=== PATIENT | female | born 1960 | race Caucasian/White ===

== ENCOUNTER 2018-01-10 15:33 | Emergency (ER) | payer MEDICARE, MEDICAID ==
[~2018-01-10] VITALS: Ht 167.6 cm; Wt 81.6 kg
[~2018-01-10 15:33] MED LIST: HYDR-3720 PO; HYDR1TAB PO; [UNRECOGNIZED DRUG - OTHER]
--- OUTSIDE RECORDS SUMMARY | 2018-01-10 15:39 | XMS REPORT ---
Author Author Rickie Arizmendi [facility] Address [address] [facility] [address] [place], [place] [id number] Care Team Providers Care Textile Coating Machine Operator Name Role Phone Rickie Arizmendi PCP Unavailable Allergies and Adverse Reactions Name Reaction Notes Methotrexate Toradol meloxicam nausea and vomiting amitriptyline muscle spasms PENICILLINS breast abcess Aspirin hives, throat swells Plan of Treatment Planned Activity Comments Planned Date Planned Time Plan/Goal ANTINUCLEAR ANTIBODIES (MICKEY) 10/28/2011 12:00 AM RHEUMATOID FACTOR QUANT 10/28/2011 12:00 AM RBC SED RATE AUTOMATED 10/28/2011 12:00 AM C-REACTIVE PROTEIN 10/28/2011 12:00 AM ANTINUCLEAR ANTIBODIES (MICKEY) 07/10/2012 12:00 AM ANTINUCLEAR ANTIBODIES 07/10/2012 12:00 AM RHEUMATOID FACTOR TEST QUAL 07/10/2012 12:00 AM CCP ANTIBODY 07/10/2012 12:00 AM C-REACTIVE PROTEIN 07/10/2012 12:00 AM RBC SED RATE AUTOMATED 07/10/2012 12:00 AM COMPUTER DX MAMMOGRAM ADD-ON 02/06/2013 12:00 AM Breast Ultrasound 02/06/2013 12:00 AM Ultrasound examination of the breast(s) 02/14/2014 12:00 AM Medications Active Name Start Date Estimated Completion Date SIG Comments Depo-Estradiol Intramuscular Oil 5 mg/mL 05/31/2013 inject 1 milliliter by intramuscular route every 3 weeks Depo-Estradiol intramuscular oil 5 mg/mL 12/27/2012 inject 1 milliliter by intramuscular route every 2 weeks Ventolin HFA inhalation HFA aerosol inhaler 90 mcg/actuation 02/14/2014 inhale 2 puffs by inhalation route every 6 hours as needed Nicotrol inhalation cartridge 10 mg 02/14/2014 inhale 1 unit by inhalation route as needed up to 16 times per day fluticasone nasal spray,suspension 50 mcg/actuation 03/15/2014 spray 2 sprays (100 mcg) in each nostril by intranasal route once daily as needed fluticasone nasal spray,suspension 50 mcg/actuation 10/16/2014 USE 1 SPRAY IN EACH NOSTRIL TWICE DAILY Depo-Estradiol intramuscular oil 5 mg/mL 11/21/2014 INJECT 1ML BY INTRAMUSCULAR ROUTE EVERY 3 WEEKS Name Start Date Expiration Date SIG Comments Zithromax Z-Yoandy Oral Tablet 250 mg 05/01/2010 05/06/2010 take 2 tablets (500 mg) by oral route once daily for 1 day then 1 tablet (250 mg) by oral route once daily for 4 days Zithromax Z-Yoandy Oral Tablet 250 mg 10/27/2010 11/01/2010 take 2 tablets (500 mg) by oral route once daily for 1 day then 1 tablet (250 mg) by oral route once daily for 4 days Fexofenadine Oral Tablet 180 mg 04/02/2011 04/02/2011 take 1 tablet (180 mg) by oral route once daily Medrol (Yoandy) Oral Tablets, Dose Pack 4 mg 04/15/2011 04/15/2011 take as labeled magnesium citrate Oral Solution 08/18/2011 08/20/2011 Drink 0.5 bottle daily for 2 days Lidoderm Topical Adhesive Patch, Medicated 5 %(700 mg/patch) 07/10/201208/09 apply 2 patches by transdermal route once daily (May wear up to 12hours. ) for 30 days Nicotrol Inhalation Cartridge 10 mg 07/10/2012 10/02/2012 inhale 1 unit by inhalation route as needed for 12 weeks up to 16 times per day ofloxacin Otic Drops 0.3 % 12/21/2012 12/21/2012 instill 10 drops (1.5 mg) into affected ear(s) by otic route 2 times per day clindamycin HCl Oral capsule 150 mg 12/29/2012 01/08/2013 take 1 capsule (150 mg) by oral route 2 times per day for 10 days temazepam Oral capsule 30 mg 10/19/2012 11/18/2012 take 1 capsule (30 mg) by oral route once daily at bedtime as needed for 30 days estropipate oral tablet 1.5 mg 05/30/2014 06/29/2014 take 1 tablet (1.5 mg) by oral route once daily for 30 days Discontinued Name Start Date Discontinued Date SIG Comments Loratadine Oral Tablet 10 mg 05/01/2010 01/20/2011 take 1 tablet (10 mg) by oral route once daily Miladys-D 12 Hour Oral Tablet Sustained Release hr 60-120 mg 09/24/20102010 take 1 tablet by oral route 2 times per day Hydrocodone-Acetaminophen Oral Tablet 10-325 mg 01/07/2011 01/20/2011 TAKE ONE OR TWO TABLETS BY MOUTH EVERY SIX HOURS NEEDED FOR PAIN Percocet Oral Tablet 10-325 mg 01/20/2011 02/02/2011 take 1 tablet by oral route every 6 hours as needed ofloxacin Otic Drops 0.3 % 06/15/2011 08/18/2011 instill 10 drops (1.5 mg) into affected ear(s) by otic route 2 times per day Depo-Estradiol Intramuscular Oil 5 mg/mL 08/10/2011 11/17/2012 inject 1 milliliter (5 mg) by intramuscular route every 2 weeks meloxicam Oral Tablet 7.5 mg 10/01/2011 10/01/2011 take 1 tablet (7.5 mg) by oral route once daily for 30 days Nausea meloxicam Oral Tablet 7.5 mg 10/25/2011 10/28/2011 take 1 tablet (7.5 mg) by oral route once daily for 30 days diclofenac potassium Oral Tablet 50 mg 10/28/2011 02/06/2013 take 1 tablet ( 50 mg) by oral route 2 times per day with food Xanax Oral Tablet 1 mg 12/28/2011 02/06/2013 TAKE ONE TABLET BY MOUTH THREE TIMES DAILY NEEDED alprazolam on list Soma Oral Tablet 350 mg 02/28/2012 01/19/2013 TAKE ONE TABLET BY MOUTH THREE TIMES DAILY NEEDED Duplicate medication on list [place]stock Oral Tablet 10-325 mg 06/01/2012 12/28/2012 TAKE ONE OR TWO TABLETS BY MOUTH EVERY SIX HOURS NEEDED FOR PAIN Duplicate medication on the list temazepam Oral capsule 30 mg 06/28/2012 07/10/2012 Take 1 capsule (30 mg) by oral route at bedtime as needed trazodone Oral tablet 100 mg 07/10/2012 01/06/2013 take 1 tablet (100 mg) by oral route once daily at bedtime for 30 days Adverse reaction--Headache dicyclomine Oral capsule 10 mg 10/05/2012 02/06/2013 take 1 capsule (10 mg) by oral route 3 times per day as needed estropipate Oral tablet 1.5 mg 11/17/2012 12/27/2012 take 1 tablet (1.5 mg) by oral route once daily for 30 days Changing back to DepoEstradiol Diflucan Oral tablet 100 mg 12/29/2012 02/06/2013 take 1 tablet by oral route every other day pseudoephedrine HCl Oral tablet extended release 120 mg 01/22/2013 02/20/2013 take 1 tablet (120 mg) by oral route every 12 hours as needed for 30 days Taking [facility] clindamycin HCl Oral capsule 150 mg 02/06/2013 05/01/2013 take 1 capsule (150 mg) by oral route 2 times per day [facility] 12 hour Oral tablet extended release 120 mg 04/21/2013 05/01/2013 take 1 tablet (120 mg) by oral route every 12 hours as needed for 30 days Advised to get all allergy medications from Dr Morales estropipate Oral tablet 3 mg 05/01/2013 05/31/2013 take 1 tablet (3 mg) by oral route once daily for 30 days fentanyl Transdermal Patch 72 hr 50 mcg/hr 05/31/2013 06/28/2013 apply 1 patch (50 mcg/hour) by transdermal route every 72 hours for 30 days Different effect with different healthcare manager Butrans Transdermal Patch Weekly 20 mcg/hour 06/28/2013 07/27/2013 apply 1 patch (20 mcg/hour) by transdermal route every 7 days prednisone oral tablet 20 mg 07/27/2013 08/23/2013 take 1 tablet (20 mg) by oral route once daily for 10 days then 0.5 tablet (10 mg) for 5 days MS Contin oral tablet extended release 30 mg 10/19/2013 11/19/2013 take 1 tablet (30 mg) by oral route every 12 hours for 30 days Continues to have " bone pain" but has not seen Distribution System Operator yet. Wants to try Oxycontin Levaquin oral tablet 500 mg 02/14/2014 05/16/2014 take 1 tablet (500 mg) by oral route once daily OxyContin oral tablet extended release 12 hr 30 mg 09/06/2014 10/09/2014 take 1 tablet by oral route every 12 hours for 30 days MS Contin oral tablet extended release 30 mg 10/09/2014 11/07/2014 take 1 tablet by oral route every 12 hours for 30 days [facility] 12 hour oral tablet extended release 120 mg 10/16/2014 01/03/2015 take 1 tablet (120 mg) by oral route every 12 hours as needed for 30 days alprazolam oral tablet 1 mg 11/07/2014 01/03/2015 take 1 tablet by oral route 3 times a day as needed for 30 days carisoprodol oral tablet 350 mg 11/07/2014 01/03/2015 TAKE ONE TABLET BY MOUTH THREE TIMES DAILY NEEDED hydrocodone-acetaminophen oral tablet 10-325 mg 11/07/2014 01/03/2015 TAKE 1 TABLET BY MOUTH EVERY 8 HOURS NEEDED MS Contin oral tablet extended release 15 mg 11/07/2014 01/03/2015 take 1 tablet (15 mg) by oral route every 12 hours for 5 days then 1 tablet daily for 5 days Problem List Description Status Onset Arthritis unspecified Active Chronic Back Pain Active compression fractures of back Active Seasonal Allergies Active Rheumatoid arthritis Active 07/01/2013 Vital Signs Date Time BP-Sys(mm[Hg] BP-Alison(mm[Hg]) HR(bpm) RR(rpm) Temp WT HT HC BMI BSA BMI Percentile O2 Sat(%) 11/07/2014 2:09:00 PM 130 mmHg 90 mmHg 81 bpm 16 rpm 96.4 F 182.8 lbs 66 in 29.50 kg/m2 1.96 m2 98 % 10/09/2014 10:07:00 AM 128 mmHg 62 mmHg 69 bpm 18 rpm 98.3 F 185 lbs 66 in 29.8595 kg/m 1.9768 m 99 % 07/09/2014 9:24:00 AM 128 mmHg 70 mmHg 84 bpm 16 rpm 97.2 F 187 lbs 66 in 30.18 kg/m2 1.99 m2 98 % 05/16/2014 9:17:00 AM 132 mmHg 80 mmHg 72 bpm 20 rpm 98.3 F 187 lbs 66 in 30.1823 kg/m 1.9874 m 97 % 03/15/2014 9:07:00 AM 130 mmHg 70 mmHg 89 bpm 20 rpm 98.6 F 185 lbs 66 in 29.86 kg/m2 1.98 m2 100 % 02/14/2014 9:18:00 AM 138 mmHg 88 mmHg 84 bpm 20 rpm 98.1 F 184 lbs 66 in 29.6981 kg/m 1.9714 m 98 % 01/18/2014 8:56:00 AM 136 mmHg 78 mmHg 80 bpm 16 rpm 98 F 178 lbs 66 in 28.73 kg/m2 1.94 m2 100 % 12/11/2013 9:08:00 AM 136 mmHg 80 mmHg 91 bpm 20 rpm 98 F 182 lbs 66 in 29.3753 kg/m 1.9607 m 99 % 11/19/2013 10:23:00 AM 132 mmHg 88 mmHg 89 bpm 20 rpm 98.1 F 182 lbs 66 in 29.38 kg/m2 1.96 m2 100 % 10/19/2013 10:13:00 AM 128 mmHg 78 mmHg 80 bpm 20 rpm 98.1 F 183 lbs 64 in 31.4116 kg/m 1.936 m 98 % 09/21/2013 10:05:00 AM 132 mmHg 78 mmHg 80 bpm 16 rpm 98.1 F 183 lbs 66 in 29.54 kg/m2 1.97 m2 100 % 08/23/2013 2:05:00 PM 130 mmHg 72 mmHg 73 bpm 20 rpm 97.8 F 183 lbs 66 in 29.5367 kg/m 1.9661 m 99 % 07/27/2013 9:23:00 AM 140 mmHg 80 mmHg 81 bpm 22 rpm 98 F 188 lbs 66 in 30.34 kg/m2 1.99 m2 100 % 06/28/2013 10:12:00 AM 132 mmHg 70 mmHg 76 bpm 18 rpm 97.8 F 187 lbs 66 in 30.1823 kg/m 1.9874 m 95 % 05/31/2013 9:54:00 AM 130 mmHg 78 mmHg 84 bpm 18 rpm 97.8 F 187 lbs 66 in 30.18 kg/m2 1.99 m2 98 % 05/01/2013 10:38:00 AM 142 mmHg 78 mmHg 82 bpm 20 rpm 98.4 F 187 lbs 66 in 30.1823 kg/m 1.9874 m 02/06/2013 4:15:00 PM 132 mmHg 78 mmHg 70 bpm 18 rpm 97.8 F 177 lbs 66 in 28.57 kg/m2 1.93 m2 11/17/2012 10:09:00 AM 134 mmHg 78 mmHg 72 bpm 16 rpm 98 F 177 lbs 66 in 28.5683 kg/m 1.9336 m 07/10/2012 10:17:00 AM 130 mmHg 76 mmHg 70 bpm 18 rpm 98 F 185 lbs 66 in 29.86 kg/m2 1.98 m2 10/28/2011 10:38:00 AM 128 mmHg 70 mmHg 78 bpm 22 rpm 98.2 F 10/01/2011 9:31:00 AM 132 mmHg 68 mmHg 72 bpm 18 rpm 97.7 F 181.375 lbs 66 in 29.27 kg/m2 1.96 m2 09/07/2011 10:33:00 AM 134 mmHg 76 mmHg 70 bpm 18 rpm 98 F 181 lbs 66 in 29.2139 kg/m 1.9553 m 08/18/2011 9:18:00 AM 126 mmHg 70 mmHg 74 bpm 16 rpm 97.8 F 175 lbs 66 in 28.25 kg/m2 1.92 m2 06/15/2011 9:38:00 AM 134 mmHg 72 mmHg 76 bpm 18 rpm 98.2 F 175 lbs 66 in 28.2454 kg/m 1.9226 m 04/23/2011 10:20:00 AM 136 mmHg 78 mmHg 72 bpm 18 rpm 98.2 F 170 lbs 66 in 27.44 kg/m2 1.89 m2 02/22/2011 8:45:00 AM 130 mmHg 72 mmHg 70 bpm 18 rpm 98.3 F 166 lbs 01/20/2011 10:57:00 AM 130 mmHg 72 mmHg 76 bpm 18 rpm 98.2 F 172 lbs 05/13/2010 9:24:00 AM 134 mmHg 78 mmHg 74 bpm 18 rpm 97.2 F 169 lbs 05/01/2010 9:26:00 AM 128 mmHg 70 mmHg 70 bpm 18 rpm 98.3 F 159 lbs Social History Name Description Comments Tobacco Current every day smoker No Alcohol Use History of Procedures Date Ordered Description Order Status 04/23/2011 12:00 AM DRAIN/INJ JOINT/BURSA W/O US Reviewed 04/23/2011 12:00 AM HEPATIC FUNCTION PANEL Reviewed 10/01/2011 12:00 AM THER/PROPH/DIAG INJ SC/IM Reviewed 10/28/2011 12:00 AM X-RAY EXAM OF HIPS Reviewed 09/25/2012 12:00 AM THER/PROPH/DIAG INJ SC/IM Reviewed 11/17/2012 12:00 AM X-RAY EXAM OF FOOT Reviewed 06/28/2013 12:00 AM X-RAY EXAM L-S SPINE 2/3 VWS Reviewed 11/19/2013 12:00 AM X-RAY EXAM OF HIP Reviewed 05/13/2010 12:00 AM DRAIN/INJ JOINT/BURSA W/O US Reviewed 10/09/2014 12:00 AM DRUG SCREEN CLASS LIST A Reviewed 01/24/2011 12:00 AM DRAIN/INJ JOINT/BURSA W/O US Reviewed Results Summary Data and Description Results 04/23/2011 12:20 PM SGOT/AST 25.0 IU/LSGPT/ALT 26.0 IU/LALK PHOS 84.0 IU/LTOTAL PROTEIN 7.70 g/dLALBUMIN 4.20 g/dLTOTAL BILI 0.20 mg/dLDIRECT BILI 0.10 mg/ dLINDIRECT BILI 0.10 mg/dL History Of Immunizations Not available. History of Past Illness Name Date of Onset Comments Arthritis unspecified compression fractures of back Chronic Back Pain Seasonal Allergies Rheumatoid arthritis 07/01/2013 Chronic Low Back Pain May 01 2010 9:28AM Menopause May 01 2010 9:28AM Left Otitis Media, Acute May 01 2010 9:28AM Eustachian Tube Dysfunction, Left May 01 2010 9:28AM Eustachian Tube Dysfunction, Left May 13 2010 9:26AM Osteoarthritis, Knee May 13 2010 9:31AM Chronic Low Back Pain Jan 20 2011 10:56AM Insomnia Jan 20 2011 10:56AM Osteoarthritis, Knee Jan 24 2011 2:24PM Insomnia Feb 22 2011 8:44AM Osteoarthritis, Knee Apr 28 2011 5:22PM intermodal dispatcher medication use - Tylenol Apr 28 2011 5:22PM Right Acute Otitis Externa Jun 15 2011 9:35AM Upper Respiratory Infection Aug 18 2011 9:20AM Contact Dermatitis Aug 18 2011 9:20AM Upper Respiratory Infection Sep 07 2011 10:35AM Bronchitis, Allergic Sep 07 2011 10:35AM Menopause Sep 07 2011 10:35AM Right Osteoarthritis Oct 01 2011 9:33AM Hip Osteoarthritis Oct 28 2011 10:40AM Polyarthralgia Jul 10 2012 10:20AM Myalgia Jul 10 2012 10:20AM Insomnia Jul 10 2012 10:20AM Tobacco use disorder Jul 10 2012 10:20AM Allergic rhinitis; due to pollen Sep 25 2012 10:18AM Allergic rhinitis; due to other allergen Sep 25 2012 10:18AM Pain in right foot Nov 17 2012 9:48AM Rhinitis, Chronic Nov 17 2012 9:48AM Menopause Nov 17 2012 9:48AM Mastitis Feb 06 2013 4:17PM Polyarthralgia May 01 2013 10:40AM Myalgia May 01 2013 10:40AM Insomnia May 01 2013 10:40AM Chronic Low Back Pain May 31 2013 9:56AM Menopause May 31 2013 9:56AM Chronic Low Back Pain Jun 28 2013 10:15AM Menopause Jun 28 2013 10:15AM Rheumatoid Arthritis Jun 28 2013 10:15AM Chronic Low Back Pain Jul 27 2013 9:25AM Menopause Jul 27 2013 9:25AM Rheumatoid Arthritis Jul 27 2013 9:25AM Chronic Low Back Pain Aug 23 2013 2:07PM Menopause Aug 23 2013 2:07PM Rheumatoid Arthritis Aug 23 2013 2:07PM Chronic Low Back Pain Sep 21 2013 10:08AM Menopause Sep 21 2013 10:08AM Rheumatoid Arthritis Sep 21 2013 10:08AM Chronic Low Back Pain Oct 19 2013 10:16AM Menopause Oct 19 2013 10:16AM Rheumatoid Arthritis Oct 19 2013 10:16AM Hip pain-right Nov 19 2013 10:26AM Rheumatoid Arthritis Nov 19 2013 10:26AM Rheumatoid Arthritis Dec 11 2013 9:10AM Rheumatoid Arthritis Jan 18 2014 8:58AM Chronic pain syndrome Jan 18 2014 8:58AM Rheumatoid Arthritis Feb 14 2014 9:21AM Chronic Back Pain Feb 14 2014 9:21AM Fibromyalgia Feb 14 2014 9:21AM Mastitis chronic, right Feb 14 2014 9:21AM Bilateral Breast mass Feb 14 2014 9:21AM Nicotine addiction Feb 14 2014 9:21AM Rheumatoid Arthritis Mar 15 2014 9:09AM Chronic Back Pain Mar 15 2014 9:09AM Fibromyalgia Mar 15 2014 9:09AM Mastitis chronic, right Mar 15 2014 9:09AM Bilateral Breast mass Mar 15 2014 9:09AM Nicotine addiction Mar 15 2014 9:09AM Chronic mastitis Mar 15 2014 9:09AM Rheumatoid Arthritis May 16 2014 9:19AM Chronic Back Pain May 16 2014 9:19AM Fibromyalgia May 16 2014 9:19AM Mastitis chronic, right May 16 2014 9:19AM Breast mass May 16 2014 9:19AM Chronic mastitis May 16 2014 9:19AM Fibromyalgia Jul 09 2014 9:26AM Anxiety Disorder Jul 09 2014 9:26AM Rheumatoid Arthritis Jul 09 2014 9:26AM Chronic Back Pain Jul 09 2014 9:26AM Fibromyalgia Oct 09 2014 10:09AM Anxiety Disorder Oct 09 2014 10:09AM Rheumatoid Arthritis Oct 09 2014 10:09AM Chronic Back Pain Oct 09 2014 10:09AM Encounter for long-term (current) drug use Oct 09 2014 10:09AM Chronic Back Pain Nov 07 2014 2:12PM Vaginal discharge Nov 07 2014 2:12PM Chronic pain syndrome Jan 03 2015 10:59AM Payers Insurance Name Company Name Plan Name Plan Number Policy Number Policy Group Number Start Date Medicare Part A Medicare Part A [id number] N/A [employer] [place] [employer] [place] [id number] N/A [employer] [place] [employer] [place] [id number] N/A [place] [employer] - [place] [employer] - RHC [id number] N/A [facility] - RHC - Community Plan of [facility] RHC Comm [id number] Wednesday, 2012 Medicare Part B Medicare Of [place] [id number] Thursday, 1995 [place] [id number] Saturday, 2010 History of Encounters Visit Date Visit Type Provider 01/03/2015 Office visit Rickie Arizmendi DO 11/07/2014 Office visit Rickie Arizmendi DO 10/09/2014 Office visit Rickie Arizmendi DO 07/09/2014 Office visit Rickie Arizmendi DO 05/16/2014 Office visit Rickie Arizmendi DO 03/15/2014 Office visit Rickie Arizmendi DO 02/14/2014 Office visit Rickie Arizmendi DO 01/18/2014 Office visit Rickie Arizmendi DO 12/11/2013 Office visit Rickie Arizmendi DO 11/19/2013 Office visit Rickie Arizmendi DO 10/19/2013 Office visit Rickie Arizmendi DO 09/21/2013 Office visit Rickie Arizmendi DO 08/23/2013 Office visit Rickie Arizmendi DO 07/27/2013 Office visit Rickie Arizmendi DO 06/28/2013 Office visit Rickie Arizmendi DO 05/31/2013 Office visit Rickie Arizmendi DO 05/01/2013 Office visit Rickie Arizmendi DO 02/06/2013 Office visit Rickie Arizmendi DO 11/17/2012 Office visit Rickie Arizmendi DO 09/25/2012 Nurse visit Rickie Arizmendi DO 07/10/2012 Office visit Rickie Arizmendi DO 10/28/2011 Office visit Rickie Arizmendi DO 10/01/2011 Office visit Kenya Clarke APRN 09/07/2011 Office visit Rickie Arizmendi DO 08/18/2011 Office visit Rickie Arizmendi DO 06/15/2011 Office visit Rickie Arizmendi DO 04/23/2011 Office visit Rickie Arizmendi DO 02/22/2011 Office visit Rickie Arizmendi DO 01/20/2011 Office visit Rickie Arizmendi DO 05/13/2010 Office visit Rickie Arizmendi DO 05/01/2010 Office visit Rickie Arizmendi DO
--- OUTSIDE RECORDS SUMMARY | 2018-01-10 15:40 | XMS REPORT ---
Author Author Rickie Arizmendi [facility] Address [address] [facility] [address] [place], [place] [id number] Care Team Providers Care Supplemental Manager Name Role Phone Rickie Arizmendi PCP Unavailable [...] TIMES DAILY NEEDED Duplicate medication on list Sharon Oral Tablet 10-325 mg 06/01/2012 12/28/2012 TAKE [...] for 30 days Different effect with different ux lead Butrans Transdermal Patch Weekly 20 mcg/hour 06/28/2013 [...] " bone pain" but has not seen Third Helper yet. Wants to try Oxycontin Levaquin oral [...] 8:44AM Osteoarthritis, Knee Apr 28 2011 5:22PM rn long term care medication use - Tylenol Apr 28 2011 [...] Date Medicare Part A Medicare Part A [id number] N/A [employer] [place] [employer] [place] [id number] N/[place] [employer] [place] [employer] [place] [id number] N/A [place] [employer] - [place] [employer] - [place] [id number] N/A [facility] - RHC - Community Plan of [facility] RHC Comm [id number] Wednesday, 2012 Medicare Part B Medicare Of [place] [id number] Thursday, 1995 [place] [id number] Saturday, 2010 History of Encounters Visit Date [...]
--- OUTSIDE RECORDS SUMMARY | 2018-01-10 15:40 | XMS REPORT | Continuity of Care Document ---
Author Author [facility] Organization [facility] Address Unknown Phone Unavailable Allergies There is no data. Medications There is no data. Problems There is no data. Procedures There is no data. Results There is no data. Encounters ACCT No. Visit Date/Time Discharge Status Pt. Type Provider Facility Loc./Unit Complaint [id number] 03/24/2015 21:34:13 03/24/2015 23:59:59 Rickie Smith [id number] 11/07/2014 18:14:52 11/07/2014 23:59:59 [facility] Outpatient Rickie Arizmendi [id number] 07/09/2014 10:12:54 07/09/2014 23:59:59 Rickie Smith [id number] 05/16/2014 10:17:08 05/16/2014 23:59:59 [facility] Outpatient Rickie Arizmendi [id number] 03/15/2014 09:55:56 03/15/2014 23:59:59 [facility] Outpatient Rickie Arizmendi [id number] 02/14/2014 16:35:24 02/14/2014 23:59:59 [facility] Outpatient Rickie Arizmendi [id number] 01/18/2014 09:48:04 01/18/2014 23:59:59 [facility] Outpatient Rickie Arizmendi [id number] 12/11/2013 09:56:22 12/11/2013 23:59:59 [facility] Outpatient Rickie Arizmendi [id number] 11/19/2013 11:07:15 11/19/2013 23:59:59 [facility] Outpatient Rickie Arizmendi [id number] 10/19/2013 11:04:30 10/19/2013 23:59:59 [facility] Outpatient Rickie Arizmendi [id number] 09/21/2013 10:52:18 09/21/2013 23:59:59 Rickie Smith [id number] 08/23/2013 14:54:48 08/23/2013 23:59:59 [facility] Outpatient Kyleigh, Rickie
--- NOTE | 2018-01-10 17:55 | ED Integumentary General ---
General Chief Complaint: Skin/Wound Problems Stated Complaint: BREAST INFECTION Nursing Triage Note: Pt reports she has skin infection on her L breast. Pt reports wound draining x2 days. Source: patient Exam Limitations: no limitations History of Present Illness Date Seen by Provider: January 10, 2018 Time Seen by Provider: 17:51 Initial Comments To ER with a left breast infection for 4 days. She states she has a history of these and she sees a doctor in [place] for these. She states this is been draining for 2 days. [facility] She denies fevers or chills. Timing/Duration: just prior to arrival Severity: moderate Associated Symptoms: denies symptoms Allergies and Home Medications Allergies Coded Allergies: aspirin (Unverified Allergy, Mild, 04/13/09) butorphanol (Unverified Allergy, Mild, 03/30/09) ketorolac (Unverified Allergy, Mild, 03/30/09) Penicillins (Unverified Allergy, Unknown, 01/10/18) Home Medications Hydrocodone Bit/Acetaminophen 1 Ea Tab, 1 EA PO Q 4 - 6 HRS PRN Prescribed by: MALCOLM HANDY on 03/30/096 Hydrocodone Bit/Acetaminophen 1 Each Tablet, 1-2 EACH PO Q4HR PRN Prescribed by: ALYSHA LACKEY on 04/13/09 1458 Patient Home Medication List Home Medication List Reviewed: Yes Constitutional: see HPI EENTM: see HPI Respiratory: no symptoms reported Cardiovascular: no symptoms reported Musculoskeletal: no symptoms reported Skin: see HPI Past Nocrmpu-Dffdyy-Pjdiwu Hx Patient Social History Recent Foreign Travel: No Contact w/Someone Who Travel: No Recent Infectious Disease Expo: No Physical Exam Vital Signs Vital Signs - First Documented 01/10/18 16:53 Temp 97.5 Pulse 80 Resp 18 B/P (MAP) 134/83 (100) Pulse Ox 98 O2 Delivery Room Air Capillary Refill : Less Than 3 Seconds General Appearance: WD/WN, no apparent distress HEENT: PERRL/EOMI, normal ENT inspection Neck: non-tender, full range of motion Respiratory: no respiratory distress, no accessory muscle use Gastrointestinal: normal bowel sounds, non tender Extremities: normal range of motion, non-tender Neurologic/Psychiatric: alert, normal mood/affect, oriented x 3 Skin: normal color, warm/dry Skin Problem Location: other (The left breast has an erythematous lesion at the 9:00 position that measures about 1 cm. This is draining. Surrounding this is about 2-3 cm of induration and about 6-7 cm of erythema.) Procedures/Interventions I&D : Blade Size: 11 Packing/Drain: Idoform / Progress Anesthetized with 2% lidocaine with epi totaling 2ml. stab incision made with 11 blade scalpel. A moderate amount of purulent sanguinous material expressed. Culture collected and sent to lab. Cavity fairly small but was packed with about 2 inches of quarter inch iodoform Progress/Results/Core Measures Results/Orders My Orders Orders - JOB ROACH APRN Wound Culture (01/10/18 17:49) Us Breast Limited Left (01/10/18 17:49) Vital Signs/I&O 01/10/18 16:53 Temp 97.5 Pulse 80 Resp 18 B/P (MAP) 134/83 (100) Pulse Ox 98 O2 Delivery Room Air Blood Pressure Mean: 100 Diagnostic Imaging Diagonstic Imaging: Ultrasound Comments NAME: [facility] REC#: [id number] PT STATUS: REG ER : 1960 PHYSICIAN: JOB ROACH APRN ADMIT DATE: 01/10/18/ER Draft Date of Exam:01/10/18 US BREAST LIMITED LEFT INDICATION: Weeping wound of the left breast at the 9 o'clock location. FINDINGS: Sonographic interrogation of the area of the left breast at 9 o'clock location was performed. There is an area of hypoechogenicity at this location measuring 1.6 x 1.5 x 1.7 cm. This extends to the skin surface. There is peripheral vascularity present. There is some echogenic foci present as well which could represent a small amount of gas. IMPRESSION: Hypoechoic mass at the 9 o'clock location of the left breast with echogenic foci within it. This may represent a left breast fluid collection with gas, such as an abscess. Close followup after a course of therapy is recommended with repeat breast ultrasound in 2-4 weeks to confirm clearing. BI-RADS 3 ACR BI-RADS Category 3: Probably benign findings. Result letter will be mailed to the patient. Note: At least 10% of breast cancer is not imaged by mammography. Dictated on workstation # [id number] Dict: 01/10/18 1833 Trans: 01/10/18 1838 [facility] [id number] Interpreted by: LING LOZA MD Electronically signed by: Departure Impression Primary Impression: Left breast abscess Disposition: 01 HOME, SELF-CARE Condition: Stable Departure-Patient Inst. Decision time for Depature: 17:54 Referrals: NO,LOCAL PHYSICIAN (PCP/Family) Primary Care Physician Patient Instructions: Skin Abscess Add. Discharge Instructions: 1. You must follow-up with your primary care provider within 1 week for recheck to ensure that this is improving with antibiotics. Some breast cancers can appear similar to breast infections so it is very important to follow-up. Take the antibiotics as directed. Return here tomorrow for wound check All discharge instructions reviewed with patient and/or family. Voiced understanding. Scripts Hydrocodone/Acetaminophen ([place] 5-325 Tablet) 1 Each Tablet 1 EACH PO Q4H PRN for PAIN-MODERATE TO SEVERE, #10 TAB Do not fill unless Bactrim is also filled Prov: JOB ROACH APRN 01/10/18 Sulfamethoxazole/Trimethoprim (Bactrim Ds Tablet) 1 Each Tablet 1 EACH PO BID, #14 TAB Prov: JOB ROACH APRN 01/10/18 JOB ROACH APRN January 10, 2018 17:55
--- NOTE | 2018-01-10 18:38 | Diagnostic Imaging Report ---
INDICATION: Weeping wound of the left breast at the 9 o'clock location. FINDINGS: Sonographic interrogation of the area of the left breast at 9 o'clock location was performed. There is an area of hypoechogenicity at this location measuring 1.6 x 1.5 x 1.7 cm. This extends to the skin surface. There is peripheral vascularity present. There is some echogenic foci present as well which could represent a small amount of gas. IMPRESSION: Hypoechoic mass at the 9 o'clock location of the left breast with echogenic foci within it. This may represent a left breast fluid collection with gas, such as an abscess. Close followup after a course of therapy is recommended with repeat breast ultrasound in 2-4 weeks to confirm clearing. BI-RADS 3 ACR BI-RADS Category 3: Probably benign findings. Result letter will be mailed to the patient. Note: At least 10% of breast cancer is not imaged by mammography. Dictated by: Dictated on workstation # [id number]
[2018-01-10] MEDS ORDERED: SULF1TAB35 PO (18:44)
[2018-01-10] MEDS ORDERED: HYDR-757 PO (18:44)
[2018-01-10] MEDS ORDERED: TRIM/SULFAMETH 160/800 (SEPTRA DS) TAB PO ONE (18:45)
[2018-01-10] MEDS ORDERED: HYDROcodone/APAP 5 MG/325 MG (LORTAB) TAB PO ONE (18:45)
[2018-01-10 18:52] VITALS: BP 137/85
== END 2018-01-10 18:52 | disposition home or self-care (01) ==
LOC: EDUNIT# 15:33 → ER 15:35
DX: N61.1 Abscess of the breast and nipple (principal); Z88.6 Allergy status to analgesic agent; Z88.0 Allergy status to penicillin; Z88.8 Allergy status to other drugs, medicaments and biological substances
CPT/HCPCS: 10061; 76642; 87070; 87205